=== PATIENT | male | born 1985 | race American Indian/Alaskan Native ===

== ENCOUNTER 2016-07-14 22:11 | Emergency (ER) | payer MEDICAID ==
[2016-07-14] MEDS ORDERED: ONDANSETRON 4 MG/2 ML VIAL IVP ONE (22:15)
[2016-07-14] MEDS ORDERED: ASPIRIN 81 MG CHEWABLE TAB PO ONE (22:15)
[2016-07-14] MEDS ORDERED: NS 1,000 ML IV ONE (22:15)
--- NOTE | 2016-07-14 22:20 | EDPHY ---
H & P Time Seen by Provider: 07/14/16 22:11 HPI/ROS: CHIEF COMPLAINT: Intoxication, chest pain HISTORY OF PRESENT ILLNESS: The patient is a 30-year-old man who [facility] and states that they gave him a pill. he states that after taking the pill he began having chest pain. The arc however told EMS that the patient came to them complaining that he had been taken a speed ball prior to arriving that this was causing his chest pain. Patient denies this now although he does not answer most questions and tends to only answer in whispers. REVIEW OF SYSTEMS: Constitutional: denies: chills, fever, recent illness, recent injury EENTM: denies: blurred vision, double vision, nose congestion Respiratory: denies: cough, shortness of breath Cardiac: See HPI Gastrointestinal/Abdominal: denies: abdominal pain, diarrhea, nausea, vomiting, blood streaked stools Genitourinary: denies: dysuria, frequency, hematuria, pain Musculoskeletal: denies: joint pain, muscle pain Skin: denies: lesions, rash, jaundice, bruising Neurological: denies: headache, numbness, paresthesia, tingling, dizziness, weakness Hematologic/Lymphatic: denies: blood clots, easy bleeding, easy bruising Immunologic/allergic: denies: HIV/AIDS, transplant EXAM: GENERAL: Well-appearing, well-nourished and in no acute distress. HEAD: Atraumatic, normocephalic. EYES: Pupils equal round and reactive to light, extraocular movements intact, sclera anicteric, conjunctiva are normal. ENT: TMs normal, nares patent, oropharynx clear without exudates. Moist mucous membranes. NECK: Normal range of motion, supple without lymphadenopathy or JVD. LUNGS: Breath sounds clear to auscultation bilaterally and equal. No wheezes rales or rhonchi. HEART: Regular rate and rhythm without murmurs, rubs or gallops. ABDOMEN: Soft, nontender, normoactive bowel sounds. No guarding, no rebound. No masses appreciated. BACK: No CVA tenderness, no spinal tenderness, step-offs or deformities EXTREMITIES: Normal range of motion, no pitting or edema. No clubbing or cyanosis. NEUROLOGICAL: Cranial nerves II through XII grossly intact. Normal speech, normal gait. 5/5 strength, normal movement in all extremities, normal sensation PSYCH: Normal mood, normal affect. SKIN: Warm, dry, normal turgor, no visible rashes or lesions. Source: Patient, Police, EMS, Old records Exam Limitations: Intoxication - Medical/Surgical History Hx Asthma: No Hx Chronic Respiratory Disease: No Hx Diabetes: No Hx Cardiac Disease: No Hx Renal Disease: No Hx Cirrhosis: No Hx Alcoholism: Yes Hx HIV/AIDS: No Hx Splenectomy or Spleen Trauma: No Other PMH: Skull fracture, alcoholism - Family History Significant Family History: Hypertension - Social History Smoking Status: Current every day smoker Alcohol Use: Heavy Drug Use: Cocaine, Marijuana Constitutional: Initial Vital Signs Temperature (C) 36.6 C 07/14/16 22:34 Heart Rate 97 07/14/16 22:34 Respiratory Rate 12 07/14/16 22:34 Blood Pressure 133/87 H 07/14/16 22:34 O2 Sat (%) 99 07/14/16 22:34 O2 Delivery Mode Room Air Allergies/Adverse Reactions: No Known Allergies Allergy (Unverified 03/17/15 11:23) Home Medications: Medication Instructions Recorded NK [No Known Home Meds] 03/17/15 Medical Decision Making - Diagnostics EKG Interpretation: An EKG obtained and was read and documented in trace view. Please see trace view for full reading and report. Sinus rhythm, no acute ischemic changes Imaging: X-ray: chest x-ray was obtained. I viewed the images myself on the PACS system. My interpretation of the images is: negative for acute disease . The radiologist interpretation is negative. ED Course/Re-evaluation: Patient is well appearing although he is only semi cooperative. He tends to whisper answers and is more interested in talking to pairer inspector's. He denies having any complaints now . 11:20 p.m. the patient's lab work and imaging were negative. He is intoxicated. We will return him to the [facility]. He is able to ambulate. Differential Diagnosis: Partial list of the Differential diagnosis considered include but were not limited to; anxiety, substance abuse, intoxication and although unlikely based on the history and physical exam, I also considered acute coronary disease, arrhythmia, pneumonia, pneumothorax, PE. - Data Points Laboratory Results: Laboratory Results 07/14/16 22:27 07/14/16 22:27 07/14/16 07/14/16 23:05 22:27 WBC 8.82 10^3/uL (3.80-9.50) RBC 5.46 10^6/uL (4.40-6.38) Hgb 18.1 H g/dL (13.7-17.5) Hct 51.4 H % (40.0-51.0) MCV 94.1 fL (81.5-99.8) MCH 33.2 pg (27.9-34.1) MCHC 35.2 g/dL (32.4-36.7) RDW 13.6 % (11.5-15.2) Plt Count 393 10^3/uL (150-400) MPV 8.5 L fL (8.7-11.7) Neut % (Auto) 44.7 % (39.3-74.2) Lymph % (Auto) 50.2 H % (15.0-45.0) Reynolds % (Auto) 3.4 L % (4.5-13.0) Eos % (Auto) 0.9 % (0.6-7.6) Baso % (Auto) 0.6 % (0.3-1.7) Nucleat RBC Rel Count 0.0 % (0.0-0.2) Absolute Neuts (auto) 3.94 10^3/uL (1.70-6.50) Absolute Lymphs (auto) 4.43 H 10^3/uL (1.00-3.00) Absolute Monos (auto) 0.30 10^3/uL (0.30-0.80) Absolute Eos (auto) 0.08 10^3/uL (0.03-0.40) Absolute Basos (auto) 0.05 10^3/uL (0.02-0.10) Absolute Nucleated RBC 0.00 10^3/uL (0-0.01) Immature Gran % 0.2 % (0.0-1.1) Immature Gran # 0.02 10^3/uL (0.00-0.10) Sodium 149 H mEq/L (134-144) Potassium 5.2 mEq/L (3.5-5.2) Chloride 104 mEq/L (97-110) Carbon Dioxide 31 mEq/l (22-31) Anion Gap 14 mEq/L (8-16) BUN 7 mg/dL (7-23) Creatinine 0.8 mg/dL (0.7-1.3) Estimated GFR > 60 Glucose 97 mg/dL (70-100) Calcium 9.2 mg/dL (8.5-10.4) Total Bilirubin 0.6 mg/dL (0.1-1.4) Conjugated Bilirubin 0.3 mg/dL (0.0-0.5) Unconjugated Bilirubin 0.3 mg/dL (0.0-1.1) AST 144 H IU/L (17-59) ALT 185 H IU/L (21-72) Alkaline Phosphatase 88 IU/L (38-126) Troponin I < 0.012 ng/mL (0-0.034) Total Protein 8.2 g/dL (6.3-8.2) Albumin 4.2 g/dL (3.5-5.0) Lipase 232.0 IU/L (23-300) Urine Opiates Screen NEGATIVE ng/mL (NEGATIVE) Urine Barbiturates NEGATIVE ng/mL (NEGATIVE) Ur Phencyclidine Scrn NEGATIVE ng/mL (NEGATIVE) Ur Amphetamines Screen 2775 ng/mL (NEGATIVE) U Benzodiazepines Scrn NEGATIVE ng/mL (NEGATIVE) Urine Cocaine Screen NEGATIVE ng/mL (NEGATIVE) U Marijuana (THC) Screen 63 ng/mL (NEGATIVE) Medications Given: Discontinued Medications Aspirin (Aspirin) 324 mg PO EDNOW ONE Stop: 07/14/16 22:16 Last Admin: 07/14/16 23:30 Dose: Not Given Haloperidol Lactate (Haldol Injection) 5 mg IVP EDNOW ONE Stop: 07/14/16 22:31 Last Admin: 07/14/16 23:31 Dose: Not Given Sodium Chloride (Ns) 1,000 mls @ 0 mls/hr IV ONCE ONE PRN Reason: Wide Open Stop: 07/14/16 22:16 Last Admin: 07/14/16 23:30 Dose: Not Given Lorazepam (Ativan Injection) 2 mg IVP EDNOW ONE Stop: 07/14/16 22:31 Last Admin: 07/14/16 23:31 Dose: 2 mg Ondansetron HCl (Zofran) 4 mg IVP EDNOW ONE Stop: 07/14/16 22:16 Last Admin: 07/14/16 23:31 Dose: Not Given Departure - Departure Disposition: Home, Routine, Self-Care Clinical Impression: Polysubstance abuse Alcoholic intoxication Qualifiers: Complication of substance-induced condition: uncomplicated Qualifier Code: ( F10.120) Alcohol abuse with intoxication, uncomplicated Condition: Fair Instructions: Alcohol Intoxication (ED) Referrals: NONE *PRIMARY CARE P,. [Primary Care Provider] - As per Instructions
--- NOTE | 2016-07-14 22:29 | CPEKG ---
Heart Rate: 84 RR Interval: 714 P-R Interval: 140 QRSD Interval: 96 QT Interval: 372 QTC Interval: 440 P [place]: 45 QRS [place]: 37 T Wave [place]: 52 EKG Severity - NORMAL ECG - EKG Impression: SINUS RHYTHM EKG Impression: ST ELEV, PROBABLE NORMAL EARLY REPOL PATTERN Electronically Signed By: Brian Baker 14-Jul-2016 22:32:40
[2016-07-14] MEDS ORDERED: HALOPERIDOL LACT 5 MG/ML INJ IVP ONE (22:30)
[2016-07-14] MEDS ORDERED: LORazepam 2 MG/ML INJ IVP ONE (22:30)
[2016-07-14] MEDS ORDERED: HALOPERIDOL LACT 5 MG/ML INJ ONE (22:31)
[2016-07-14] MEDS ORDERED: LORazepam 2 MG/ML INJ ONE (22:31)
[2016-07-14 22:37] VITALS: TEMP 97.9
[2016-07-14 22:37] LABS: % IMMATURE GRANULYOCYTES 0.2 % (0.0-1.1); ABSOLUTE IMMATURE GRANULOCYTES 0.02 10^3/uL (0.00-0.10); ADD DIFF? NO; ADD MORPH? NO; ADD SCAN? NO; ATYPICAL LYMPHOCYTE FLAG 10 (0-99); FRAGMENT RBC FLAG 0 (0-99); HEMATOCRIT 51.4 % (40.0-51.0); HEMOGLOBIN 18.1 g/dL (13.7-17.5); LEFT SHIFT FLG 0 (0-99); LIPEMIA HEMOLYSIS FLAG 90 (0-99); MEAN CELL HEMOGLOBIN 33.2 pg (27.9-34.1); MEAN CELL HEMOGLOBIN CONCENTR. 35.2 g/dL (32.4-36.7); MEAN CELL VOLUME 94.1 fL (81.5-99.8); MEAN PLATELET VOLUME 8.5 fL (8.7-11.7); PLATELET CLUMPS FLAG 0 (0-99); PLATELET COUNT 393 10^3/uL (150-400); RED BLOOD CELL COUNT 5.46 10^6/uL (4.40-6.38); RED CELL DISTRIBUTION WIDTH 13.6 % (11.5-15.2)
[2016-07-14 22:57] LABS: ALANINE AMINOTRANSFERASE 185 IU/L (21-72); ALBUMIN 4.2 g/dL (3.5-5.0); ALKALINE PHOSPHATASE 88 IU/L (38-126); ANION GAP 14 mEq/L (8-16); ASPARTATE AMINOTRANSFERASE 144 IU/L (17-59); BILIRUBIN,TOTAL 0.6 mg/dL (0.1-1.4); BILIRUBIN-CONJUGATED 0.3 mg/dL (0.0-0.5); BILIRUBIN-UNCONJUGATED 0.3 mg/dL (0.0-1.1); CALCIUM 9.2 mg/dL (8.5-10.4); CARBON DIOXIDE 31 mEq/l (22-31); CHLORIDE 104 mEq/L (97-110); CREATININE 0.8 mg/dL (0.7-1.3); GLOMERULAR FILTRATION RATE > 60; GLUCOSE 97 mg/dL (70-100); POTASSIUM 5.2 mEq/L (3.5-5.2); SODIUM 149 mEq/L (134-144); TOTAL PROTEIN 8.2 g/dL (6.3-8.2)
--- NOTE | 2016-07-14 23:03 | DX ---
Portable Chest, Single View 22:44 PM Hours Indication: Chest pain. Altered mental status. Comparison: Portable chest dated September 04, 2009 Findings: The lungs are well aerated and clear. The left costophrenic sulcus extends off the lateral margin of the film. No pneumothorax, airspace consolidation, edema or discernible effusion. Heart siz e is normal. Impression: Negative portable chest.
[2016-07-14 23:09] LABS: TROPONIN I < 0.012 ng/mL (0-0.034)
[2016-07-15 00:02] LABS: PHENCYCLIDINE URINE BCH < 6 ng/ml (NEGATIVE); PHENCYCLIDINE URINE BCH NEGATIVE (NEGATIVE); TETRAHYDROCANNABINOL URINE 63 ng/mL (NEGATIVE)
[2016-07-15 00:11] VITALS: BP 94/69; PULSE 90; RESP 16; O2SAT 95
== END 2016-07-15 00:10 | disposition home or self-care (01) ==
LOC: EDUNIT#
DX: F10.120 Alcohol abuse with intoxication, uncomplicated (principal); F19.10 Other psychoactive substance abuse, uncomplicated; F17.200 Nicotine dependence, unspecified, uncomplicated
CPT/HCPCS: 80307; 96374; G0480; J2405